=== PATIENT | male | born 1985 | race Caucasian/White ===

== ENCOUNTER 2016-10-18 13:53 | Emergency (ER) | payer OTHER ==
[~2016-10-18] VITALS: Ht 160 cm; Wt 51.3 kg
[~2016-10-18 13:53] MED LIST: CIPR250T PO; IMMU50VI3 IV; OFLO5DRO7 OT
[2016-10-18 14:00] VITALS: BP 126/93
--- NOTE | 2016-10-18 14:34 | PHYS DOC ---
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 He states that he's had this for a few days. He was seen at urgent care and was placed on antibiotics for sinusitis infection. They had told him that if the area has gotten any bigger became worse to follow-up with a dentist. He states he is unable to get into a dentist at this time. Patient states that he has tried to rinse his mouth out although he has pain and discomfort with trying to wear his dentures. Review of Systems Review of Systems Constitutional: Denies fever or chills [] Eyes: Denies change in visual acuity, redness, or eye pain [] HENT: Denies nasal congestion or sore throat. Complaint of discomfort underneath the time of the right side. Cardiovascular: No additional information not addressed in HPI [] GI: Denies abdominal pain, nausea, vomiting, bloody stools or diarrhea [] : Denies dysuria or hematuria [] Musculoskeletal: Denies back pain or joint pain [] Integument: Denies rash or skin lesions [] Neurologic: Denies headache, focal weakness or sensory changes [] Endocrine: Denies polyuria or polydipsia [] Allergies Allergies Allergies Coded Allergies Type Severity Reaction Last Updated Verified No Known Drug Allergies 10/10/16 No Physical Exam Physical Exam Constitutional: Well developed, well nourished, no acute distress, non-toxic appearance. [] HENT: Normocephalic, atraumatic, bilateral external ears normal, oropharynx moist, no oral exudates, nose normal. Bilateral tympanic membranes appear to be normal, there was no erythematous no drainage no exudate noted. Patient does have an area underneath the tongue on the right that appears to be able salivary gland that is swollen and tender. No drainage or discharge coming from the site. Eyes: PERRLA, EOMI, conjunctiva normal, no discharge. [] Neck: Normal range of motion, no tenderness, supple, no stridor. [] Cardiovascular:Heart rate regular rhythm, no murmur [] Lungs & Thorax: Bilateral breath sounds clear to auscultation [] Skin: Warm, dry, no erythema, no rash. [] Back: No tenderness Extremities: No tenderness, no cyanosis, no clubbing, ROM intact, no edema. [] Neurologic: Alert and oriented X 3, normal motor function, normal sensory function, no focal deficits noted. [] Psychologic: Affect normal, judgement normal, mood normal. [] Current Patient Data Vital Signs Vital Signs Date Time Temp Pulse Resp B/P (MAP) Pulse Ox O2 Delivery O2 Flow Rate FiO2 10/18/16 14:00 98.2 110 18 96 Room Air 98.2 EKG EKG [] Radiology/Procedures Radiology/Procedures [] Course & Med Decision Making Course & Med Decision Making Pertinent Labs and Imaging studies reviewed. (See chart for details) Patient was recommended to do warm salt water mouth rinses 4 times a day. Also recommended sucking on some lemon drops or josie. Recommended to continue using the antibiotics as prescribed. Also recommended following up with a dentist within the next week. Also spoke with patient regards to eating to drink shakes to help supplement his nutrition as his dentures rub on the salivary gland area under the tongue. Spoke with patient regards to eating soft foods. Patient was provided with signs symptoms to return back to emergency department. Patient agrees with discharge instructions, treatment regimens and follow-up recommendations. Dragon Disclaimer Dragon Disclaimer This electronic medical record was generated, in whole or in part, using a voice recognition dictation system. Departure Departure Impression: Primary Impression: Mouth pain Disposition: 01 HOME, SELF-CARE Condition: STABLE Referrals: BABS ALATORRE MD (PCP) Patient Instructions: Salivary Gland Infection Additional Instructions: Recommended warm salt water mouth rinses 4 times a day and prior to bedtime. Recommended using a lemon drops or lemon juice or plane josie to help open up the salivary gland area. Continue antibiotics as prescribed. Follow-up with the dentist within the next week. For nutrition soft foods may also help. Shakes or malts may help with supplemental foods. Return to the emergency department for signs symptoms of become worse. RADHA JAVIER APRN Oct 18, 2016 14:34
== END 2016-10-18 15:02 | disposition home or self-care (01) ==
LOC: ER 13:53
DX: K13.79 Other lesions of oral mucosa (principal)
CPT/HCPCS: 99281

== ENCOUNTER → 2017-05-14 | Outpatient (CLI) | payer BC | END | disposition home or self-care (01) | LOC: KCIC CT 10:45 | DX: J32.9 Chronic sinusitis, unspecified (principal) | CPT/HCPCS: 70486 ==